=== PATIENT | female | born 1950 | race Caucasian/White ===

== ENCOUNTER 2017-11-22 07:15 | Day surgery (SDC) | payer MEDICARE, BC ==
[~2017-11-22 07:15] MED LIST: BUPIVACAINE 0.75% (MPF) 10 ML INJ; EPINEPHrine 1 MG INJ; LIDOCAINE 1% (MPF) 10 ML INJ; LIDOCAINE 2% (SDV) 5 ML INJ; PHENYLephrine 10% 5 ML OPH; SODIUM BICARBONATE (IV ADD) 50 ML; TIMOLOL 0.5% 5 ML OPH; [UNRECOGNIZED DRUG - REMARK] XX
[2017-11-22] MEDS ORDERED: NEPAFENAC 0.1% 3 ML OPH (08:13)
[2017-11-22] MEDS: PHENYLephrine 10% 5 ML OPH OPER (08:15)
[2017-11-22] MEDS: TOBRAMYCIN/DEXAMETH 2.5 ML OPH OPER (08:16)
[2017-11-22] MEDS: NEPAFENAC 0.1% 3 ML OPH OPER (08:16)
[2017-11-22] MEDS: PHENYLephrine 10% 5 ML OPH LEFT EYE (09:30)
[2017-11-22] MEDS ORDERED: CEFAZOLIN 1 GM INJ (09:55)
[2017-11-22] MEDS ORDERED: NEOSTIGMINE 3 MG/3 ML SYRINGE (09:55)
[2017-11-22] MEDS ORDERED: GLYCOPYRROLATE 0.4 MG INJ (09:55)
[2017-11-22] MEDS ORDERED: PROPOFOL 20 ML (09:55)
[2017-11-22] MEDS ORDERED: ROCURONIUM 50 MG INJ (09:55)
[2017-11-22] MEDS ORDERED: ONDANSETRON 4 MG INJ (09:56)
[2017-11-22] MEDS ORDERED: DEXAMETHASONE 4 MG/ML 1 ML INJ (09:56)
[2017-11-22] MEDS ORDERED: MIDAZOLAM 1 MG/ML 2 ML INJ (09:56)
[2017-11-22] MEDS ORDERED: FENTAnyl 50 MCG/ML VIAL (09:56)
[2017-11-22] MEDS ORDERED: OXYCODONE/ACETAMINOPHEN (5/325) TAB PO (10:30)
[2017-11-22] MEDS ORDERED: HYDROmorphONE (0.2 MG/ML) 10ML SYG IV ×3 (10:30)
[2017-11-22] MEDS ORDERED: ONDANSETRON 4 MG INJ IV (10:30)
[2017-11-22] MEDS ORDERED: EPHEDrine SULFATE 50 MG/5 ML SYG IV (10:30)
[2017-11-22] MEDS ORDERED: MIDAZOLAM 1 MG/ML 2 ML INJ IV (10:30)
[2017-11-22] MEDS ORDERED: MEPERIDINE 25 MG INJ IV (10:30)
[2017-11-22] MEDS ORDERED: hydrALAzine 20 MG INJ IV (10:30)
[2017-11-22] MEDS ORDERED: LABETALOL HCL 20MG INJ IV (10:30)
[2017-11-22] MEDS ORDERED: ALBUTEROL 0.083% (NEB) 2.5 MG/3 ML AMP HHN (10:30)
[2017-11-22] MEDS ORDERED: FENTAnyl 50 MCG/ML VIAL IV ×2 (10:30)
[2017-11-22] MEDS ORDERED: TRIMETHOBENZAMIDE 100 MG/ML VIAL IM (10:30)
[2017-11-22] MEDS ORDERED: IPRATROPIUM (NEB) 0.5 MG/2.5 ML AMP HHN (10:30)
[2017-11-22] MEDS ORDERED: CARBACHOL 0.01% 1.5 ML OPH INJ (10:31)
[2017-11-22] MEDS: CARBACHOL 0.01% 1.5 ML OPH INJ LEFT EYE (10:32)
[2017-11-22] MEDS: TIMOLOL 0.5% 5 ML OPH LEFT EYE (10:33)
[2017-11-22] MEDS ORDERED: SUGAMMADEX SODIUM 200 MG/2 ML VIAL IV (11:15)
[2017-11-22] MEDS ORDERED: METOCLOPRAMIDE 10 MG INJ (11:24)
[2017-11-22] MEDS: FENTAnyl 50 MCG/ML VIAL IV (11:41)
[2017-11-22] MEDS: DIPHENHYDRAMINE 50 MG INJ IV (11:59)
[2017-11-22] MEDS: OXYCODONE/ACETAMINOPHEN (5/325) TAB PO (12:53)
== END 2017-11-22 13:30 | disposition home or self-care (01) ==
LOC: SDS 07:15
DX: H43.12 Vitreous hemorrhage, left eye (principal); H43.89 Other disorders of vitreous body; J45.909 Unspecified asthma, uncomplicated; E11.9 Type 2 diabetes mellitus without complications
CPT/HCPCS: 67036; 82962